=== PATIENT | male | born 1955 | race Caucasian/White ===

== ENCOUNTER 2022-02-05 15:15 | Emergency (ER) | payer OTHER ==
[2022-02-05 15:27] VITALS: RESP 18
[2022-02-05] MEDS ORDERED: DIPH,PERTUS(ACELL)TETVAC-LF 0.5 ML VIAL IM ONE (15:33)
[2022-02-05] MEDS ORDERED: LIDOCAINE 1%-EPI 1:100,000 20 ML VIAL SQ STA (15:34)
--- NOTE | 2022-02-05 16:31 | CT ---
EXAMINATION TYPE: CT brain wo con CT DLP: 1114.4 mGycm, Automated exposure control for dose reduction was used. DATE OF EXAM: 02/05/2022 4:23 PM COMPARISON: None. CLINICAL INDICATION:Male, 66 years old with history of head injury, fall, head injury TECHNIQUE: Brain: Axial CT images of the brain were obtained with coronal and sagittal reformats created and rev iewed. Contrast used: None. Oral contrast used: None. FINDINGS: Brain: Extra-axial spaces: No abnormal extra-axial fluid collections. Ventricular system: Dilatation in proportion to cerebral atrophy. Cerebral parenchyma: Cerebral atrophy. No acute intraparenchymal hemorrhage or mass effect. The cordova -white junction is well differentiated. Cerebellum: Unremarkable. Mass effect: No evidence of midline shift. Intracranial vasculature: unremarkable Soft tissues: Normal. Calvarium/osseous structures: No depressed skull fracture. Paranasal sinuses and mastoid air cells: Mild scattered paranasal sinus disease. Visualized orbits: Orbital contents are intact. IMPRESSION: No acute intracranial process.
--- NOTE | 2022-02-05 17:44 | ED ---
Fall HPI - General Chief Complaint: Fall Stated Complaint: Fell,Head injury Time Seen by Provider: 02/05/22 15:25 Source: EMS Mode of arrival: EMS - History of Present Illness Initial Comments: This 66-year-old male presents with a complaint of a fall with head injury. This occurred just shortly prior to arrival. He was at a camp when he was utilizing his walker. He apparently may have let go of his walker fell back and hit his head on the ground. He did not lose any consciousness. There is been no nausea or vomiting. He's been acting normal. There's been no neurologic complaints otherwise. He did obtain a small head laceration. There is mild to moderate bleeding. He does not take any blood thinners. They deny any other injuries. No other complaints or modifying factors. - Related Data Home Medications Medication Instructions Recorded Confirmed Cholecalciferol (Vitamin D3) 62.5 mcg PO DAILY@0800 02/05/22 02/05/22 [Vitamin D3 (2500 units)] Trihexyphenidyl HCl 8 mg PO TID@0800,1630,2300 02/05/22 02/05/22 tiZANidine HCL 8 mg PO TID@0800,1630,2300 02/05/22 02/05/22 Allergies Allergy/AdvReac Type Severity Reaction Status Date / Time No Known Allergies Allergy Verified 02/05/22 17:07 Review of Systems ROS Statement: Those systems with pertinent positive or pertinent negative responses have been documented in the HPI. ROS Other: All systems not noted in ROS Statement are negative. 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 VITAL SIGNS: Heart rate, blood pressure, respiratory rate reviewed as recorded in nurse's notes. EYES: Pupils are round and reactive. Extraocular movements are intact. No conjunctival / lid redness or swelling. ENT: There is a 0.5 cm puncture type laceration noted to the occiput. There is only minimal bleeding noted. There is no swelling identified. Airway is patent. Throat is clear. NECK: Nontender. No swelling or evidence of injury. No subcutaneous emphysema. Trachea is midline. No thyroid mass. HEART: Regular rate and rhythm. Good peripheral pulses. LUNGS/CHEST: Breath sounds clear and equal bilaterally. No rales, rhonchi, or wheezes. No ecchymosis, subcutaneous emphysema, or tenderness. ABDOMEN: Abdomen soft without tenderness. No palpable masses or organomegaly. No peritoneal signs. No abdominal wall swelling or ecchymosis. EXTREMITIES: No extremity tenderness. No thoracolumbar tenderness. NEUROLOGIC: Sensation is grossly intact. Cranial nerve exam reveals face is symmetrical, tongue is midline, speech is clear. SKIN: No abrasions or ecchymosis is noted. No induration or masses noted. PSYCHIATRIC: Alert and pleasant. Limitations: altered mental status, physical limitation Course Vital Signs 02/05/22 15:22 Temperature 98.1 F Pulse Rate 80 Respiratory 18 Rate Blood Pressure 150/101 O2 Sat by Pulse 94 L Oximetry Medical Decision Making - Medical Decision Making The patient was seen and examined. The computed tomography scan of brain was done and does not show any acute processes. The wound is anesthetized with approximately 1 mL of lidocaine with epinephrine. Excellent anesthesia was obtained. The wound was cleansed and closed with 1 staple. Tetanus is updated. It is felt as though he stable for discharge. Return parameters are discussed with patient, came nurse, and sister in detail. He is to have staple out in 10 days. Disposition Clinical Impression: Fall, Head injury, Scalp laceration Disposition: HOME SELF-CARE Condition: Good Instructions (If sedation given, give patient instructions): Fall Prevention for Older Adults (ED), Head Injury (ED), Staple Care (ED) Additional Instructions: Please have your fe out in 10 days. Is patient prescribed a controlled substance at d/c from ED?: No Referrals: None,Stated [Primary Care Provider] - 02/15/22 Time of Disposition: 17:43
[2022-02-05 17:50] VITALS: BP 124/84; PULSE 88; TEMP 97.6
== END 2022-02-05 18:05 | disposition home or self-care (01) ==
LOC: EC 15:15
DX: S01.01XA Laceration without foreign body of scalp, initial encounter (principal); Z23 Encounter for immunization; W01.198A Fall on same level from slipping, tripping and stumbling with subsequent striking against other object, initial encounter
CPT/HCPCS: 12011; 70450; 90471; 90715; 99284

== ENCOUNTER 2025-01-09 12:31 | Observation (INO) | payer MEDICARE, OTHER ==
--- NOTE | 2025-01-09 12:54 | ED ---
General Adult HPI - General Chief complaint: Syncope Stated complaint: Syncope Time Seen by Provider: 01/09/25 12:36 Source: patient, RN notes reviewed Mode of arrival: EMS Limitations: no limitations - History of Present Illness Initial comments: Patient is a 69-year-old male presenting to the emergency department with family and staff with concerns for syncopal episode. Patient did have a syncopal episode 3 days ago and went to a different emergency department and was given fluids. Patient again had a couple of near syncopal episodes followed by unresponsive episode. No shaking activity seen. No injury. Patient is somewhat a poor historian. 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 Patient normally lives at a full care facility. Patient is currently at a local camp. Patient is symptom-free and has no complaints. Patient denies chest pain. No pain at all. Family feels patient is acting normal. Patient family is unclear if patient normally has difficulty with extraocular eye movements. - Related Data Home Medications Medication Instructions Recorded Confirmed Cholecalciferol (Vitamin D3) 62.5 mcg PO DAILY@0800 02/05/22 02/05/22 [Vitamin D3 (2500 units)] Trihexyphenidyl HCl 8 mg PO TID@0800,1630,2300 02/05/22 02/05/22 tiZANidine HCL 8 mg PO TID@0800,1630,2300 02/05/22 02/05/22 Allergies Allergy/AdvReac Type Severity Reaction Status Date / Time No Known Allergies Allergy Verified 02/05/22 17:07 Review of Systems ROS Statement: Those systems with pertinent positive or pertinent negative responses have been documented in the HPI. ROS Other: All systems not noted in ROS Statement are negative. Constitutional: Denies: fever Eyes: Reports: as per HPI. 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 Absent: EOMI (Difficulty moving the right eye medial of midline) ENT exam: Present: normal oropharynx Respiratory exam: Present: normal lung sounds bilaterally Cardiovascular Exam: Present: regular rate, normal rhythm Expanded Peripheral pulses: 2+: Radial (R), Radial (L), Posterior Tibialis (R), Posterior Tibialis (L) GI/Abdominal exam: Present: soft. Absent: tenderness, pulsatile mass Extremities exam: Present: tenderness (Mild tenderness right shoulder which patient states is chronic), calf tenderness (Right sided) Neurological exam: Present: alert, CN II-XII intact (Except right eye) Expanded Neurological exam: Present: protecting the airway Patient oriented to: Present: person, place Cranial nerves: EOM's Intact: Abnormal Right (Difficulty moving the right eye medial of midline) Sensory exam: Upper Extremity Light Touch: Normal, Lower Extremity Light Touch: Normal Motor strength exam: RUE: 5, LUE: 5, RLE: 5, LLE: 5 Eye Response: (4) open spontaneously Motor Response: (6) obeys commands Verbal Response: (4) confused conversation (Reported as normal) Psychiatric exam: Present: normal affect, normal mood Skin exam: Present: normal color Course Vital Signs 01/09/25 01/09/25 01/09/25 12:34 15:07 16:05 Temperature 97.8 F Pulse Rate 63 76 79 Respiratory 18 18 18 Rate Blood Pressure 127/80 152/63 136/89 O2 Sat by Pulse 100 100 97 Oximetry 01/09/25 17:13 Temperature Pulse Rate 54 L Respiratory 18 Rate Blood Pressure 129/75 O2 Sat by Pulse 96 Oximetry EKG Findings - EKG Results: EKG: interpreted by ERMD, sinus rhythm, normal axis, normal QRS, normal ST/T EKG shows: bradycardia Medical Decision Making - Medical Decision Making Was pt. sent in by a medical professional or institution (, PA, DOCKETING SPECIALIST, urgent care, hospital, or custodial...) When possible be specific @ -Patient was sent and from camp Did you speak to anyone other than the patient for history (EMS, parent, family, police, friend...)? What history was obtained from this source @ -Sister and Doctor help provide history as patient is a poor historian Did you review nursing and triage notes (agree or disagree)? Why? @ -I reviewed and agree with nursing and triage notes Were old charts reviewed (outside hosp., previous admission, EMS record, old EKG, old radiological studies, urgent care reports/EKG's, custodial records)? Report findings @ -No old charts were reviewed Differential Diagnosis (chest pain, altered mental status, abdominal pain women, abdominal pain men, vaginal bleeding, weakness, fever, dyspnea, syncope, headache, dizziness, GI bleed, back pain, seizure, CVA, palpatations, mental health, musculoskeletal)? @ -Differential Syncope: Valvular disease, hypertrophic cardiomyopathy, pulmonary embolism, tamponade, t achycardia, bradycardia, SC, hypovolemia, hemorrhage, dissection, anemia, intracranial hemorrhage, seizure, hypoglycemia, carbon monoxide poisoning, this is not meant to be an all-inclusive list. EKG interpreted by me (3pts min.). @ -As above X-rays interpreted by me (1pt min.). @ - CT interpreted by me (1pt min.). @ -CT brain shows some hydrocephalus. CT chest without pulmonary embolism. Th ere is some increased groundglass appearance. U/S interpreted by me (1pt. min.). @ -Ultrasound without evidence of DVT What testing was considered but not performed or refused? (CT, X-rays, U/S, labs )? Why? @ -None What meds were considered but not given or refused? Why? @ -None Did you discuss the management of the patient with other professionals (professionals i.e. , PA, DOCKETING SPECIALIST, lab, RT, psych nurse, social science research assistant, volunteer patient representative, teacher, chemistry technical officer, employment evaluator/case manager)? Give summary @ -Case discussed with Dr. Curry who will admit covering hospital call Was smoking cessation discussed for >3mins.? @ -No Was critical care preformed (if so, how long)? @ -No Were there social determinants of health that impacted care today? How? (Homelessness, low income, unemployed, alcoholism, drug addiction, transportation, low edu. Level, literacy, decrease access to med. care, half-way, rehab)? @ -No Was there de-escalation of care discussed even if they declined (Discuss DNR or withdrawal of care, Hospice)? DNR status @ -No What co-morbidities impacted this encounter? (DM, HTN, Smoking, COPD, CAD, Cancer, CVA, ARF, Chemo, Hep., AIDS, mental health diagnosis, sleep apnea, morbid obesity)? @ -None Was patient admitted / discharged? Hospital course, mention meds given and route, prescriptions, significant lab abnormalities, going to OR and other pertinent info. @ -Patient presents with syncopal episode. Patient also had a syncopal episode a couple of days ago. There is concern this could be related to medications by family and camp doctor. Patient will be admitted with neuro consult. Patient and family updated. Admission orders written. Undiagnosed new problem with uncertain prognosis? @ -No Drug Therapy requiring intensive monitoring for toxicity (Heparin, Nitro, Insulin, Cardizem)? @ -No Were any procedures done? @ -No Diagnosis/symptom? @ -Syncope Acute, or Chronic, or Acute on Chronic? @ -Acute Uncomplicated (without systemic symptoms) or Complicated (systemic symptoms)? @ -Default Side effects of treatment? @ -No Exacerbation, Progression, or Severe Exacerbation? @ -No Poses a threat to life or bodily function? How? (Chest pain, USA, SC, pneumonia, PE, COPD, DKA, ARF, appy, cholecystitis, CVA, Diverticulitis, Homicidal, Suicidal, threat to staff... and all critical care pts) @ -No - Lab Data Result diagrams: 01/09/25 12:53 01/09/25 12:53 Lab Results 01/09/25 01/09/25 01/09/25 Range/Units 12:53 12:53 12:53 WBC 8.82 (4.50-10.00) 10*3/uL RBC 3.81 L (4.40-5.60) 10*6/uL Hgb 12.3 L (13.0-17.0) g/dL Hct 37.1 L (39.6-50.0) % MCV 97.4 H (80.0-97.0) fL MCH 32.3 H (27.0-32.0) pg MCHC 33.2 (32.0-37.0) g/dL Plt Count 349 (140-440) 10*3/uL MPV 9.2 L (9.5-12.2) fL Immature Gran % (Auto) 0.1 % Neutrophils % 63.1 % Lymphocytes % 20.6 % Monocytes % 11.2 % Eosinophils % 4.4 % Basophils % 0.6 % Immature Gran # 0.01 (0.00-0.04) 10*3/uL Neutrophils # 5.56 (1.80-7.70) 10*3/uL Lymphocytes # 1.82 (0.90-5.00) 10*3/uL Monocytes # 0.99 (0.20-1.00) 10*3/uL Eosinophils # 0.39 H (0.04-0.35) 10*3/uL Basophils # 0.05 (0.00-0.10) 10*3/uL PT 10.9 (10.0-12.5) sec INR 1.0 (<1.2) APTT 23.3 (22.0-30.0) sec D-Dimer 1.49 H (<0.60) mg/L FEU Sodium 143 (137-145) mmol/L Potassium 4.4 (3.5-5.1) mmol/L Chloride 103 (98-107) mmol/L Carbon Dioxide 31 H (22-30) mmol/L Anion Gap 9 mmol/L BUN 22 H (9-20) mg/dL Creatinine 0.64 L (0.66-1.25) mg/dL Est GFR (CKD-EPI)AfAm >90 (>60 ml/min/1.73 sqM) Est GFR (CKD-EPI)NonAf >90 (>60 ml/min/1.73 sqM) Glucose 80 (74-99) mg/dL Calcium 9.2 (8.4-10.2) mg/dL Magnesium 1.7 (1.6-2.3) mg/dL Total Bilirubin 0.2 (0.2-1.3) mg/dL AST 21 (17-59) U/L ALT 11 (4-49) U/L Alkaline Phosphatase 64 (38-126) U/L Troponin I (0.000-0.034) ng/mL Total Protein 7.2 (6.3-8.2) g/dL Albumin 4.1 (3.5-5.0) g/dL Urine Color Urine Appearance (Clear) Urine pH (5.0-8.0) Ur Specific [place] (1.001-1.035) Urine Protein (Negative) Urine Glucose (UA) (Negative) Urine Ketones (Negative) Urine Blood (Negative) Urine Nitrite (Negative) Urine Bilirubin (Negative) Urine Urobilinogen (<2.0) mg/dL Ur Leukocyte Esterase (Negative) 01/09/25 01/09/25 Range/Units 12:53 15:50 WBC (4.50-10.00) 10*3/uL RBC (4.40-5.60) 10*6/uL Hgb (13.0-17.0) g/dL Hct (39.6-50.0) % MCV (80.0-97.0) fL MCH (27.0-32.0) pg MCHC (32.0-37.0) g/dL Plt Count (140-440) 10*3/uL MPV (9.5-12.2) fL Immature Gran % (Auto) % Neutrophils % % Lymphocytes % % Monocytes % % Eosinophils % % Basophils % % Immature Gran # (0.00-0.04) 10*3/uL Neutrophils # (1.80-7.70) 10*3/uL Lymphocytes # (0.90-5.00) 10*3/uL Monocytes # (0.20-1.00) 10*3/uL Eosinophils # (0.04-0.35) 10*3/uL Basophils # (0.00-0.10) 10*3/uL PT (10.0-12.5) sec INR (<1.2) APTT (22.0-30.0) sec D-Dimer (<0.60) mg/L FEU Sodium (137-145) mmol/L Potassium (3.5-5.1) mmol/L Chloride (98-107) mmol/L Carbon Dioxide (22-30) mmol/L Anion Gap mmol/L BUN (9-20) mg/dL Creatinine (0.66-1.25) mg/dL Est GFR (CKD-EPI)AfAm (>60 ml/min/1.73 sqM) Est GFR (CKD-EPI)NonAf (>60 ml/min/1.73 sqM) Glucose (74-99) mg/dL Calcium (8.4-10.2) mg/dL Magnesium (1.6-2.3) mg/dL Total Bilirubin (0.2-1.3) mg/dL AST (17-59) U/L ALT (4-49) U/L Alkaline Phosphatase (38-126) U/L Troponin I <0.012 (0.000-0.034) ng/mL Total Protein (6.3-8.2) g/dL Albumin (3.5-5.0) g/dL Urine Color Colorless Urine Appearance Clear (Clear) Urine pH 6.5 (5.0-8.0) Ur Specific [place] 1.010 (1.001-1.035) Urine Protein Negative (Negative) Urine Glucose (UA) Negative (Negative) Urine Ketones Negative (Negative) Urine Blood Negative (Negative) Urine Nitrite Negative (Negative) Urine Bilirubin Negative (Negative) Urine Urobilinogen <2.0 (<2.0) mg/dL Ur Leukocyte Esterase Negative (Negative) Disposition Clinical Impression: Syncope Disposition: ADMITTED IP TO THIS HOSP Is patient prescribed a controlled substance at d/c from ED?: No Referrals: Eric Laws DO [Primary Care Provider] - 1-2 days Time of Disposition: 17:42
[2025-01-09 13:01] LABS: Basophils # (A) 0.05 10*3/uL (0.00-0.10); Basophils % (A) 0.6 %; Eosinophils # (A) 0.39 10*3/uL (0.04-0.35); Eosinophils % (A) 4.4 %; HCT 37.1 % (39.6-50.0); HGB 12.3 g/dL (13.0-17.0); Lymphocytes # (A) 1.82 10*3/uL (0.90-5.00); Lymphocytes % (A) 20.6 %; MCH 32.3 pg (27.0-32.0); MCHC 33.2 g/dL (32.0-37.0); MCV 97.4 fL (80.0-97.0); Monocytes # (A) 0.99 10*3/uL (0.20-1.00); Monocytes % (A) 11.2 %; Neutrophils # (A) 5.56 10*3/uL (1.80-7.70); Neutrophils % (A) 63.1 %; Platelet Count 349 10*3/uL (140-440); RBC 3.81 10*6/uL (4.40-5.60); RDW 12.6 % (11.5-14.5); WBC 8.82 10*3/uL (4.50-10.00)
[2025-01-09 13:19] LABS: ALT 11 U/L (4-49); AST 21 U/L (17-59); African American GFR (CKD) >90 (>60 ml/min/1.73 sqM); Albumin 4.1 g/dL (3.5-5.0); Alkaline Phosphatase 64 U/L (38-126); Anion Gap 9 mmol/L; Blood Urea Nitrogen 22 mg/dL (9-20); Calcium 9.2 mg/dL (8.4-10.2); Carbon Dioxide 31 mmol/L (22-30); Chloride 103 mmol/L (98-107); Glucose 80 mg/dL (74-99); Magnesium 1.7 mg/dL (1.6-2.3); Non-African American GFR(CKD) >90 (>60 ml/min/1.73 sqM); Potassium 4.4 mmol/L (3.5-5.1); Sodium 143 mmol/L (137-145); Total Protein 7.2 g/dL (6.3-8.2)
[2025-01-09 13:24] LABS: INR 1.0 (<1.2); Partial Thromboplastin Time 23.3 sec (22.0-30.0); Prothrombin Time 10.9 sec (10.0-12.5)
[2025-01-09] MEDS: SODIUM CHLORIDE 0.9% 1,000 ML IV STA (14:04)
--- NOTE | 2025-01-09 14:15 | US ---
EXAMINATION TYPE: US venous doppler duplex LE RT DATE OF EXAM: 01/09/2025 2:06 PM COMPARISON: NONE CLINICAL INDICATION: Male, 69 years old with history of pain; Right leg pain, Pain TECHNIQUE: The lower extremity deep venous system is examined utilizing real time linear array sonog joey with graded compression, color doppler sonography, and spectral doppler. SIDE PERFORMED: Right FINDINGS: VESSELS IMAGED: Common Femoral Vein Deep Femoral Vein Greater Saphenous Vein * Femoral Vein Popliteal Vein Small Saphenous Vein * Proximal Calf Veins (* superficial vessels) Right Leg: Negative for DVT, Color Doppler imaging shows patency of the vessels. Spectral waveforms are within normal limits. Pulsatile venous waveforms IMPRESSION: No ultrasound evidence for deep venous thrombosis. [facility], , 01/09/2025 2:13 PM
[2025-01-09 16:04] LABS: Bilirubin,Urine Negative (Negative); Blood,Urine Negative (Negative); Color,Urine Colorless; Glucose,Urine (UA) Negative (Negative); Ketones,Urine Negative (Negative); Leukocyte Esterase,Urine Negative (Negative); Nitrite,Urine Negative (Negative); PH, Urine 6.5 (5.0-8.0); Protein,Urine Negative (Negative); Specific Gravity,Urine 1.010 (1.001-1.035); Urobilinogen,Urine <2.0 mg/dL (<2.0)
--- NOTE | 2025-01-09 16:53 | CT ---
EXAMINATION TYPE: CT brain wo con CT DLP: 1162.2 mGycm, Automated exposure control for dose reduction was used. DATE OF EXAM: 01/09/2025 4:46 PM COMPARISON: CT brain 02/06/2020 CLINICAL INDICATION:Male, 69 years old with history of syncope, ams TECHNIQUE: Brain: Multiple axial CT images of the brain were obtained without IV contrast. . Coronal and sagitta l reformats reviewed. FINDINGS: Brain: Extra-axial spaces: No abnormal extra-axial fluid collections. Ventricular system: Mild hydrocephalus redemonstrated. Cerebral parenchyma: Minimal cerebral atrophy. No acute intraparenchymal hemorrhage or mass effect. The cordova-white junction is well differentiated. Cerebellum: Unremarkable. Mass effect: No evidence of midline shift. Intracranial vasculature: Atherosclerotic calcifications of the intracranial vessels. Soft tissues: Normal. Calvarium/osseous structures: No depressed skull fracture. Paranasal sinuses and mastoid air cells: Clear Visualized orbits: Orbital contents are intact. IMPRESSION: 1. No acute intracranial hemorrhage. 2. Mild hydrocephalus redemonstrated. This seems greater than level of cerebral atrophy. Correlate c linically for possible normal pressure hydrocephalus. [facility], , 01/09/2025 4:51 PM
--- NOTE | 2025-01-09 17:11 | CT ---
EXAMINATION TYPE: CT angio chest CT DLP: 262.4 mGycm, Automated exposure control for dose reduction was used. DATE OF EXAM: 01/09/2025 4:46 PM COMPARISON: None CLINICAL INDICATION:Male, 69 years old with history of syncope; elevated d-dimer TECHNIQUE/CONTRAST: CTA scan of the thorax is performed with IV Contrast, patient injected with 100ml mL of Isovue 370, p ulmonary embolism protocol. MIP images are created and reviewed. FINDINGS: Pulmonary Artery: There is no evidence for a filling defect within the pulmonary vasculature to sugge st acute pulmonary embolism. The pulmonary artery is of normal size. Lungs/Pleura: No pleural effusion or pneumothorax. Scattered patchy groundglass opacities throughout the lungs. No suspicious pulmonary nodule or mass. Elevation of the right hemidiaphragm. Airway: Large airways are patent. Heart: Cardiomegaly is demonstrated.No pericardial effusion. No significant coronary artery calcifica tions. Vasculature: No evidence of aortic aneurysm. Mediastinum: No evidence of adenopathy. Musculoskeletal: Healing right anterolateral fourth through sixth nondisplaced rib fractures with tita hernandez formation. No segmental fractures. Remote healed left-sided rib fractures. Soft Tissues: Prominent bilateral gynecomastia. Lower neck: No significant findings. Upper Abdomen: No significant findings. IMPRESSION: 1. No evidence of pulmonary embolism. 2. Scattered groundglass pulmonary opacities suggesting atypical pulmonary infection.. 3. Healing right anterolateral fourth through sixth nondisplaced rib fractures with callus formation. [facility], , 01/09/2025 5:09 PM
[2025-01-09] MEDS ORDERED: NALOXONE 0.4 MG/ML 1 ML VIAL IV PRN (17:42)
--- NOTE | 2025-01-09 23:09 | P.HPIM ---
History of Present Illness H&P Date: 01/09/25 Chief Complaint: weakness The patient is a 69-year-old male with a history of neuromuscular dystonia who was hospitalized in mid December for urinary tract infection. At that time the patient's Artane was discontinued. The patient last Thursday had an episode of loss of consciousness. Family describes patient becoming weak and confused. The patient was at a day camp for persons with disabilities. He has been at the camp since last Thursday the patient had 2 episodes similar to last Thursday. The episodes involve him becoming weak losing control of his muscles and confusion. The patient had a similar episode 2 days he was brought to emergency room for evaluation prior to coming to the emergency room the family discussed with the patient's primary neurologist restarting his artery at that time was recommended that he started with half the dose 3 times a day. The patient was at his baseline at the time of my evaluation. Review of Systems Constitutional: Reports lethargy, Reports weakness Past Medical History Past Medical History: Neurologic Disorder Additional Past Medical History / Comment(s): distonia neuromuscular History of Any Multi-Drug Resistant Organisms: None Reported Past Surgical History: Appendectomy, Tonsillectomy Past Psychological History: No Psychological Hx Reported Smoking Status: Never smoker Past Alcohol Use History: None Reported Past Drug Use History: None Reported Medications and Allergies Home Medications Medication Instructions Recorded Confirmed Type tiZANidine HCL 8 mg PO Q8HR@0800,1400,219902/05/22 01/09/25 History Acetaminophen Tab [Tylenol] 650 mg PO Q8HR@0800,1400,219901/09/25 01/09/25 History Cholecalciferol (Vitamin D3) 125 mcg PO DAILY@79901/09/25 01/09/25 History [Vitamin D3 (125 MCG = 5,000 IU)] Escitalopram [Lexapro] 10 mg PO DAILY@79901/09/25 01/09/25 History Fludrocortisone [Florinef] 0.1 mg PO DAILY@79901/09/25 01/09/25 History Midodrine HCl 10 mg PO TID@0800,1400,199901/09/25 01/09/25 History Sennosides 17.2 mg PO HS@199901/09/25 01/09/25 History Tamsulosin HCl [Flomax] 0.4 mg PO HS@199901/09/25 01/09/25 History Allergies Allergy/AdvReac Type Severity Reaction Status Date / Time No Known Allergies Allergy Verified 01/09/25 18:41 Physical Exam Vitals: Vital Signs Temp Pulse Resp BP Pulse Ox 01/09/25 18:01 55 L 18 163/91 97 01/09/25 17:13 54 L 18 129/75 96 01/09/25 16:05 79 18 136/89 97 01/09/25 15:07 76 18 152/63 100 01/09/25 12:34 97.8 F 63 18 127/80 100 Intake and Output 01/09/25 01/09/25 01/09/25 06:59 14:59 22:59 Output Total 700 Balance -700 Output: Urine 700 Straight 700 Other: Weight 54.431 kg - Constitutional General appearance: thin - EENT Eyes: PERRLA - Respiratory Respiratory: bilateral: CTA - Cardiovascular Rhythm: regular - Gastrointestinal General gastrointestinal: normal bowel sounds - Musculoskeletal Musculoskeletal: generalized weakness (limited at baseline) Results CBC & Chem 7: 01/09/25 12:53 01/09/25 12:53 Labs: Abnormal Lab Results - Last 24 Hours (Table) 01/09/25 01/09/25 01/09/25 Range/Units 12:53 12:53 12:53 RBC 3.81 L (4.40-5.60) 10*6/uL Hgb 12.3 L (13.0-17.0) g/dL Hct 37.1 L (39.6-50.0) % MCV 97.4 H (80.0-97.0) fL MCH 32.3 H (27.0-32.0) pg MPV 9.2 L (9.5-12.2) fL Eosinophils # 0.39 H (0.04-0.35) 10*3/uL D-Dimer 1.49 H (<0.60) mg/L FEU Carbon Dioxide 31 H (22-30) mmol/L BUN 22 H (9-20) mg/dL Creatinine 0.64 L (0.66-1.25) mg/dL CT scan - chest: report reviewed Assessment and Plan (1) Weakness Current Visit: Yes Status: Acute Onset Date: ~01/09/25 Code(s): R53.1 - W EAKNESS SNOMED Code(s): 91926518 (2) Syncope Narrative/Plan: Monitor on telemetry, unclear if true loss of consciousness, could be weakness secondary to medication Current Visit: Yes Status: Acute Code(s): R55 - SYNCOPE AND COLLAPSE SN OMED Code(s): 660258556 (3) Dysphagia Narrative/Plan: At baseline continue pured diet diet with thin liquids Current Visit: Yes Status: Acute Code(s): R13.10 - DYSPHAGIA, UNSPECIFIED SNOMED Code(s): 39743778 Plan: Restart Artane at lower dose, monitor patient's, resume other home medications
[2025-01-10 08:03] LABS: Basophils # (A) 0.07 10*3/uL (0.00-0.10); Basophils % (A) 0.7 %; Eosinophils # (A) 0.26 10*3/uL (0.04-0.35); Eosinophils % (A) 2.6 %; HCT 37.0 % (39.6-50.0); HGB 12.1 g/dL (13.0-17.0); Lymphocytes # (A) 1.53 10*3/uL (0.90-5.00); Lymphocytes % (A) 15.4 %; MCH 31.3 pg (27.0-32.0); MCHC 32.7 g/dL (32.0-37.0); MCV 95.9 fL (80.0-97.0); Monocytes # (A) 0.85 10*3/uL (0.20-1.00); Monocytes % (A) 8.6 %; Neutrophils # (A) 7.19 10*3/uL (1.80-7.70); Neutrophils % (A) 72.5 %; Platelet Count 345 10*3/uL (140-440); RBC 3.86 10*6/uL (4.40-5.60); RDW 12.5 % (11.5-14.5); WBC 9.92 10*3/uL (4.50-10.00)
[2025-01-10 08:17] LABS: ALT 11 U/L (4-49); AST 21 U/L (17-59); African American GFR (CKD) >90 (>60 ml/min/1.73 sqM); Albumin 3.8 g/dL (3.5-5.0); Albumin/Globulin Ratio 1.4; Alkaline Phosphatase 59 U/L (38-126); Anion Gap 9 mmol/L; Blood Urea Nitrogen 13 mg/dL (9-20); Calcium 9.1 mg/dL (8.4-10.2); Carbon Dioxide 27 mmol/L (22-30); Chloride 105 mmol/L (98-107); Globulin 2.8 g/dL; Glucose 89 mg/dL (74-99); Non-African American GFR(CKD) >90 (>60 ml/min/1.73 sqM); Potassium 4.0 mmol/L (3.5-5.1); Sodium 141 mmol/L (137-145); Total Protein 6.6 g/dL (6.3-8.2)
--- NOTE | 2025-01-10 13:39 | P.CNNES ---
<Jared Falcon - Last Filed: 01/10/25 13:17> History of Present Illness Consult date: 01/10/25 Requesting physician: Dennis Richardson Reason for Consult: Syncope Chief complaint: Syncopal episode History of Present Illness: Patient is a 69 year old male with past medical history of neuromuscular dystonia presented to the ED with syncopal episode. Patient seen today under neurological consultation for syncope. Patient had a syncopal episode 3 days ago and went to a different emergency department where he was given fluids. He then had a couple of near syncopal episodes followed by an unresponsive episode when he was at day camp for persons with disabilities. He lives at a full care facility. Patient's Artane was r ecently stopped and he was supposed to meet with his primary neurologist for recent this medication and he was recommended to start with half the dose. His blood pressure today is 160/[address] shows no acute intracranial hemorrhage, mild hydrocephalus redemonstrated which seems greater than the level of cerebral atrophy Past Medical History Past Medical History: Neurologic Disorder Additional Past Medical History / Comment(s): distonia neuromuscular History of Any Multi-Drug Resistant Organisms: None Reported Past Surgical History: Appendectomy, Tonsillectomy Past Psychological History: No Psychological Hx Reported Smoking Status: Never smoker Past Alcohol Use History: None Reported Past Drug Use History: None Reported Medications and Allergies Home Medications Medication Instructions Recorded Confirmed Type tiZANidine HCL 8 mg PO Q8HR@0800,1400,0 02/05/22 01/09/25 History Acetaminophen Tab [Tylenol] 650 mg PO Q8HR@0800,1400,219901/09/25 01/09/25 History Cholecalciferol (Vitamin D3) 125 mcg PO DAILY@79901/09/25 01/09/25 History [Vitamin D3 (125 MCG = 5,000 IU)] Escitalopram [Lexapro] 10 mg PO DAILY@79901/09/25 01/09/25 History Fludrocortisone [Florinef] 0.1 mg PO DAILY@79901/09/25 01/09/25 History Midodrine HCl 10 mg PO TID@0800,1400,199901/09/25 01/09/25 History Sennosides 17.2 mg PO HS@199901/09/25 01/09/25 History Tamsulosin HCl [Flomax] 0.4 mg PO HS@199901/09/25 01/09/25 History Allergies Allergy/AdvReac Type Severity Reaction Status Date / Time No Known Allergies Allergy Verified 01/09/25 18:41 Physical Examination - Vital Signs Vital Signs: Vital Signs Temp Pulse Pulse Resp BP BP Pulse Ox 01/10/25 12:00 97.5 F L 97 20 160/77 95 01/10/25 11:19 98.6 F 96 20 133/86 97 01/10/25 09:27 84 20 149/90 94 L 01/10/25 06:00 87 16 148/96 98 01/10/25 02:09 79 18 119/86 95 01/10/25 00:02 72 18 125/83 98 01/09/25 18:01 55 L 18 163/91 97 01/09/25 17:13 54 L 18 129/75 96 01/09/25 16:05 79 18 136/89 97 01/09/25 15:07 76 18 152/63 100 Intake and Output 01/09/25 01/10/25 01/10/25 22:59 06:59 14:59 Output Total 700 Balance -700 Output: Urine 700 Straight 700 General: nontoxic, no distress On general examination, there is no carotid bruit or murmur, S1-S2 audible. Chest is clear on consultation. Abdomen is soft nontender. No peripheral edema. Neuro: Awake, Alert, Oriented x3 Face is symmetric, facial sensation normal. On muscle strength testing, and the strength is 4/5 in all 4 extremities Deep tendon reflexes are symmetric 1 at the biceps, 0 brachioradialis, 1 at the knees and plantars downgoing bilaterally. Sensory to touch is equal Cerebellar function showed no ataxia for [id number] testing. Results - Laboratory Findings CBC and BMP: 01/10/25 05:45 01/10/25 05:45 Abnormal Lab Findings: Abnormal Labs 01/09/25 01/09/25 01/09/25 12:53 12:53 12:53 RBC 3.81 L Hgb 12.3 L Hct 37.1 L MCV 97.4 H MCH 32.3 H MPV 9.2 L Eosinophils # 0.39 H D-Dimer 1.49 H Carbon Dioxide 31 H BUN 22 H Creatinine 0.64 L 01/10/25 01/10/25 05:45 05:45 RBC 3.86 L Hgb 12.1 L Hct 37.0 L MCV MCH MPV Eosinophils # D-Dimer Carbon Dioxide BUN Creatinine 0.49 L Assessment and Plan Assessment: Syncopal episode Multiple presyncopal episodes History of neuromuscular dystonia Plan: Brain CT shows no acute intracranial hemorrhage, mild hydrocephalus redemonstrated with seems greater than the level of cerebral atrophy Obtain EEG Continue IV fluids Continue home medications fludrocortisone, midodrine, tizanidine Dictation was produced using [employer] dictation software. please excuse any grammatical, word or spelling errors. Jared Falcon MD PGY-2 IM <Newton Sheriff - Last Filed: 01/10/25 18:31> Physical Examination - Vital Signs Vital Signs: Vital Signs Temp Pulse Pulse Resp BP BP Pulse Ox 01/10/25 14:43 98.3 F 102 H 19 100/65 99 01/10/25 12:00 97.5 F L 97 20 160/77 95 01/10/25 11:19 98.6 F 96 20 133/86 97 01/10/25 09:27 84 20 149/90 94 L 01/10/25 06:00 87 16 148/96 98 01/10/25 02:09 79 18 119/86 95 01/10/25 00:02 72 18 125/83 98 Intake and Output 01/10/25 01/10/25 01/10/25 06:59 14:59 22:59 Output Total 450 Balance -450 Output: Urine 450 Other: Weight 54.431 kg Results - Laboratory Findings CBC and BMP: 01/10/25 05:45 01/10/25 05:45 Abnormal Lab Findings: Abnormal Labs 01/09/25 01/09/25 01/09/25 12:53 12:53 12:53 RBC 3.81 L Hgb 12.3 L Hct 37.1 L MCV 97.4 H MCH 32.3 H MPV 9.2 L Eosinophils # 0.39 H D-Dimer 1.49 H Carbon Dioxide 31 H BUN 22 H Creatinine 0.64 L 01/10/25 01/10/25 05:45 05:45 RBC 3.86 L Hgb 12.1 L Hct 37.0 L MCV MCH MPV Eosinophils # D-Dimer Carbon Dioxide BUN Creatinine 0.49 L Assessment and Plan Assessment: syncope: possibly due to medication induced (high dose of Tizanidine) Plan: We will lower her Tiznidine dose as per her outpatient recommendation per family members to 4mg tid rather than 8mg td. Also will resume her home Trihexyphenidly 2mg tid. Recommend the patient to follow-up with his outpatient neurologist within 2-3 weeks. If the patient is doing well within 24 hours, then is clear from neurological perspective I personally examined the patient with the resident and obtained history. I agree with the resident's assessment and plan. Newton Sheriff M.D. Time with Patient: Greater than 30
[2025-01-10] MEDS: MIDODRINE 5 MG TAB PO SCH (17:10)
[2025-01-10] MEDS: FLUDROCORTISONE 0.1 MG TAB PO SCH (17:10)
[2025-01-10] MEDS: TRIHEXYPHENIDYL 2 MG TAB PO SCH (17:40)
--- NOTE | 2025-01-10 17:45 | P.PN ---
Subjective Progress Note Date: 01/10/25 Hospital course: Patient is a very pleasant 69-year-old male with a past medical history of BPH and neuromuscular dystonia with chronic hypotension on midodrine and Florinef. He presented to our facility on 01/09/2025 secondary to recurrent syncopal episodes, weakness, and confusion. Patient recently had medication changes made and Artane was discontinued. Since discontinuation of this medication patient has had recurrent episodes of loss of consciousness/syncope. Patient was attending a day For persons with disabilities and experienced 2 episodes of loss of consciousness and was sent to our facility for evaluation. On arrival to our facility, patient underwent evaluation in the emergency department. Vital signs upon arrival show blood pressure 127/80, heart rate 63, respiratory rate 18, t emp 97.8 F, and SpO2 100% on room air. EKG completed showing sinus bradycardia at 58 bpm with no noted T wave or ST abnormality showing no signs of acute ischemia upon personal review and interpretation. Right lower extremity Doppler completed negative for DVT. CT brain completed negative for acute intercranial hemorrhage showing redemonstration of mild hydrocephalus reported appearing greater than level of cerebral atrophy concerning for possible normal pressure hydrocephalus. CTA chest completed negative for pulmonary emboli showing scattered groundglass pulmonary opacities in healing right anterolateral 4th through 6th nondisplaced rib fractures with callus formation. Labs completed and reviewed. CBC showing stable macrocytic anemia with hemoglobin of 12.3. Coagulation profile showing elevated D-dimer of 1.49. BMP showing hypercarbia with bicarb of 31 and prerenal azotemia with BUN of 22 otherwise normal findings. Blood glucose 80. Magnesium was slightly low at 1.7. Liver profile unremarkable. Troponin was negative at less than 0.012. Urinalysis negative for infection. Patient admitted under services with consultation to neurology. Physical exam: Patient seen and fully evaluated at bedside this morning. Patient mildly frustrated as he spilled juice on himself this morning when attempting to feed himself breakfast. Patient assisted with weaning up with damp cloth. Patient otherwise denies any complaints at this time. Vital signs reviewed and stable. General: Nontoxic, no distress and appears stated age. Chronically ill- appearing Derm: Skin warm and dry, normal coloration for ethnicity. Head: Atraumatic, normocephalic and symmetric. Eyes: no lid lag, and anicteric sclera Mouth: no lip lesions, mucus membranes moist Cardiovascular: regular rate and rhythm with normal S1S2, no murmur, positive posterior tibial pulses bilaterally, and cap refill < 2 seconds. Lungs: Respirations even, regular, and unlabored on room air. Lungs CTA bilaterally, no rhonchi, no rales, no wheezing, and no accessory muscle usage. Abdominal: soft, nontender to palpation, no guarding, no appreciable organomegaly Ext: No gross muscle atrophy, no edema, no contractures. Movement and sensation intact. Neuro/psych: Patient alert to person, place, and situation. Patient noted tremors in bilateral upper extremities. Psych: Alert and oriented to person, place, and situation. Appropriate and pleasant affect. Assessment and Plan of Care: Recurrent syncopal episodes, rule out seizure activity versus other causes such as autonomic instability resulting from abrupt discontinuation of Artane Metabolic encephalopathy, improved likely secondary to above Neuromuscular dystonia Neurology consulted, discussed plan of care with neurologist Dr. Richey patient to be placed back on Artane 2 mg 3 times daily EEG to be completed Continue neurochecks Fall precautions Orthostatic vitals Continue Florinef 0.1 mg daily and midodrine 10 mg 3 times daily with p arameters placed to hold for systolic pressure greater than 120 Continue Zanaflex 4 mg every 8 hours Elevated D-dimer, CTA negative for PE. Scattered groundglass pulmonary opacities Healing right anterolateral 4th through 6th nondisplaced rib fractures with callus formation - Patient denies respiratory complaints including shortness of breath or cough. WBC count normal findings at 9.92 and patient afebrile. - Encourage use of incentive spirometry 10-15 times hourly while awake. BPH Continue Flomax 0.4 mg nightly. Monitor for postvoid residual/retention. Data and imaging reviewed: Vital signs reviewed. Blood pressure 149/90, heart rate 84, respiratory rate 20, and SpO2 of 94% on room air. Morning labs reviewed. CBC showing stable normocytic anemia with hemoglobin of 12.1 otherwise normal findings. BMP unremarkable. Blood glucose 89. Liver profile normal findings. Calcium 9.1. Urinalysis negative for blood or infection. CODE STATUS: Full code DVT prophylaxis: Lovenox Discussed with: Patient, RN, and neurologist Anticipated discharge date: Pending clinical course, likely tomorrow Anticipated discharge place: Return home with home care Patient was seen independently by Nurse Pracitioner. This document was prepared using [employer] dictation software. Please allow for errors in engineering test mechanic, while rare they do occur. Frank Russell NP rendered care for this patient independently, reviewed the findings and plan as documented in the note above and agree with plan. I did not physically speak with or examine the patient on this date. Objective - Vital Signs Vital signs: Vital Signs Temp 97.8 F 01/09/25 12:34 Pulse 87 01/10/25 06:00 Resp 16 01/10/25 06:00 BP 148/96 01/10/25 06:00 Pulse Ox 98 01/10/25 06:00 FiO2 Intake & Output 01/09/25 01/10/25 01/10/25 18:59 06:59 18:59 Output Total 700 Balance -700 Weight 54.431 kg Output: Urine 700 Straight 700 - Labs CBC & Chem 7: 01/10/25 05:45 01/10/25 05:45 Labs: Abnormal Lab Results - Last 24 Hours (Table) 01/09/25 01/09/25 01/09/25 Range/Units 12:53 12:53 12:53 RBC 3.81 L (4.40-5.60) 10*6/uL Hgb 12.3 L (13.0-17.0) g/dL Hct 37.1 L (39.6-50.0) % MCV 97.4 H (80.0-97.0) fL MCH 32.3 H (27.0-32.0) pg MPV 9.2 L (9.5-12.2) fL Eosinophils # 0.39 H (0.04-0.35) 10*3/uL D-Dimer 1.49 H (<0.60) mg/L FEU Carbon Dioxide 31 H (22-30) mmol/L BUN 22 H (9-20) mg/dL Creatinine 0.64 L (0.66-1.25) mg/dL 01/10/25 01/10/25 Range/Units 05:45 05:45 RBC 3.86 L (4.40-5.60) 10*6/uL Hgb 12.1 L (13.0-17.0) g/dL Hct 37.0 L (39.6-50.0) % MCV (80.0-97.0) fL MCH (27.0-32.0) pg MPV (9.5-12.2) fL Eosinophils # (0.04-0.35) 10*3/uL D-Dimer (<0.60) mg/L FEU Carbon Dioxide (22-30) mmol/L BUN (9-20) mg/dL Creatinine 0.49 L (0.66-1.25) mg/dL
[2025-01-10] MEDS: TAMSULOSIN 0.4 MG CAP.ER.24H PO SCH (20:56)
[2025-01-10] MEDS: SENNOSIDES 8.6 MG TAB PO SCH (20:56)
--- NOTE | 2025-01-10 22:30 | EEG ---
ELECTROENCEPHALOGRAM REPORT CLINICAL HISTORY: This is a 69-year-old gentleman with syncopal spell. The video EEG is obtained to evaluate for seizure epileptiform activity. RELEVANT MEDICATION: 1. Tizanidine. 2. Trihexyphenidyl. EEG TYPE: This is a routine 21 channel EEG with video using the 10/20 electrode placement system. DESCRIPTION: Wakefulness is only obtained. During awake state, the posterior-dominant rhythm consists of [id number] voltage of 8.5 to 9.5 hertz activity that is well modulated and well sustained. There is no physiological stage 2 sleep architecture. There is no focal slowing. Interictal and ictal, none. ACTIVATION PROCEDURE: Photic stimulation and hyperventilation are not performed. CLINICAL INTERPRETATION: This is a normal routine EEG during awake state. There is no focal slowing, epileptiform discharge, or seizure on the EEG. A normal routine EEG does not rule out underlying epilepsy. Clinical correlation is recommended. MMFAM / ANDREZ: [id number] /
[2025-01-11] MEDS: ESCITALOPRAM 10 MG TAB PO SCH (08:37)
[2025-01-11] MEDS: ENOXAPARIN 40 MG/0.4 ML SYRINGE SQ SCH (08:39)
[2025-01-11] MEDS ORDERED: ZINC OXIDE PASTE (Z-GUARD) 1 APPLIC TOPICAL PRN (11:55)
[2025-01-11 14:41] VITALS: BP 98/59; PULSE 110; RESP 18; TEMP 98.3
--- NOTE | 2025-01-11 18:24 | P.DS ---
Providers Date of admission: 01/09/25 17:44 Expected date of discharge: 01/11/25 Attending physician: Atif Olmos MD Consults: 01/09/25 17:42 Consult Physician Urgent Consulting Provider: Newton Sheriff Consult Reason/Comments: syncope Do you want consulting provider notified?: Yes Primary care physician: Eric Laws, DO Hospital Course: Discharge Diagnosis: Recurrent syncopal episodes, suspect secondary to autonomic instability resulting from abrupt discontinuation of Artane. CT brain was negative for acute intracranial process showing redemonstration of mild hydrocephalus. Patient was evaluated by neurologist and an EEG was completed. EEG showing normal routine EEG showing no focal slowing, epileptiform discharge, or seizure activity. Neurology recommending restarting patient on Artane 200 mg 3 times daily. Patient had no further episodes of syncope/loss of consciousness and is free from any complaints at this time. Patient cleared from neurology perspective for discharge recommending outpatient follow-up with his primary neurologist. Patient medically optimized for discharge at this time. Patient being discharged back to [place] [facility] facility and to follow-up outpatient with PCP in 1 to 2 days and with his primary neurologist in 1 to 2 weeks. Attempts made to contact patient's family/DPOA to further discuss discharge instructions, no answer at this time. RN states that she will continue to attempt contact prior to [facility]. Prescription sent for Artane 200 mg 3 times daily. Metabolic encephalopathy, improved likely secondary to above Neuromuscular dystonia Elevated D-dimer, CTA negative for PE. Scattered groundglass pulmonary opacities. Patient asymptomatic of any respiratory complaints including shortness of breath, cough or congestion, or chest pain/discomfort. WBC count remained normal and patient remained afebrile throughout hospitalization. Recommend continuation of incentive spirometry after discharge. Healing right anterolateral 4th through 6th nondisplaced rib fractures with callus formation BPH. Continue Flomax 0.4 mg nightly. Hospital Course: Patient is a very pleasant 69-year-old male with a past medical history of BPH and neuromuscular dystonia with chronic hypotension on midodrine and Florinef. He presented to our facility on 01/09/2025 secondary to recurrent syncopal episodes, weakness, and confusion. Patient recently had medication changes made and Artane was discontinued. Since discontinuation of this medication patient has had recurrent episodes of loss of consciousness/syncope. Patient was attending a [facility] and experienced 2 episodes of loss of consciousness and was sent to our facility for evaluation. On arrival to our facility, patient underwent evaluation in the emergency department. Vital signs upon arrival show blood pressure 127/80, heart rate 63, respiratory rate 18, temp 97.8 F, and SpO2 100% on room air. EKG completed showing sinus bradycardia at 58 bpm with no noted T wave or ST abnormality showing no signs of acute ischemia upon personal review and interpretation. Right lower extremity Doppler completed negative for DVT. CT brain completed negative for acute intercranial hemorrhage showing redemonstration of mild hydrocephalus reported appearing greater than level of cerebral atrophy concerning for possible normal pressure hydrocephalus. CTA chest completed negative for pulmonary emboli showing scattered groundglass pulmonary opacities in healing right anterolateral 4th through 6th nondisplaced rib fractures with callus formation. Labs completed and reviewed. CBC showing stable macrocytic anemia with hemoglobin of 12.3. Coagulation profile showing elevated D-dimer of 1.49. BMP showing hypercarbia with bicarb of 31 and prerenal azotemia with BUN of 22 otherwise normal findings. Blood glucose 80. Magnesium was slightly low at 1.7. Liver profile unremarkable. Troponin was negative at less than 0.012. Urinalysis negative for infection. Patient admitted under services with consultation to neurology. Physical exam: Vital signs reviewed and stable. General: Nontoxic, no distress and appears stated age. Chronically ill- appearing Derm: Skin warm and dry, normal coloration for ethnicity. Head: Atraumatic, normocephalic and symmetric. Eyes: no lid lag, and anicteric sclera Mouth: no lip lesions, mucus membranes moist Cardiovascular: regular rate and rhythm with normal S1S2, no murmur, positive posterior tibial pulses bilaterally, and cap refill < 2 seconds. Lungs: Respirations even, regular, and unlabored on room air. Lungs CTA bilaterally, no rhonchi, no rales, no wheezing, and no accessory muscle usage. Abdominal: soft, nontender to palpation, no guarding, no appreciable organomegaly Ext: No gross muscle atrophy, no edema, no contractures. Movement and sensation intact. Neuro/psych: Patient alert to person, place, and situation. Patient noted tremors in bilateral upper extremities. Psych: Alert and oriented to person, place, and situation. Appropriate and pleasant affect. A total of 34 minutes of time were spent preparing this complex discharge summary. Pt was discharged on 01/11/2025 at 11:23 AM. Patient was seen independently by Nurse Practitioner. This document was prepared using [employer] dictation software. Please allow for errors in chef de cuisine while rare they do occur. Frank Russell NP rendered care for this patient independently, reviewed the findings and plan as documented in the note above. I did not physically speak with or examine the patient on this date. Patient Condition at Discharge: Stable Plan - Discharge Summary New Discharge Prescriptions: New Trihexyphenidyl [Artane] 2 mg PO AC-TID 30 Days #90 tab Continue Acetaminophen Tab [Tylenol] 650 mg PO Q8HR@0800,1400,2200 Escitalopram [Lexapro] 10 mg PO DAILY@0800 Tamsulosin HCl [Flomax] 0.4 mg PO HS@1999 tiZANidine HCL 8 mg PO Q8HR@0800,1400,2200 Sennosides 17.2 mg PO HS@1999 Fludrocortisone [Florinef] 0.1 mg PO DAILY@0800 Cholecalciferol (Vitamin D3) [Vitamin D3 (125 MCG = 5,000 IU)] 125 mcg PO DAILY@0800 Midodrine HCl 10 mg PO TID@0800,1400,1999 #0 Discharge Medication List tiZANidine HCL 8 mg PO Q8HR@0800,1400,2200 02/05/22 [History] Acetaminophen Tab [Tylenol] 650 mg PO Q8HR@0800,1400,2200 01/09/25 [History] Cholecalciferol (Vitamin D3) [Vitamin D3 (125 MCG = 5,000 IU)] 125 mcg PO DAILY@0800 01/09/25 [History] Escitalopram [Lexapro] 10 mg PO DAILY@0800 01/09/25 [History] Fludrocortisone [Florinef] 0.1 mg PO DAILY@00 01/09/25 [History] Sennosides 17.2 mg PO HS@199901/09/25 [History] Tamsulosin HCl [Flomax] 0.4 mg PO HS@199901/09/25 [History] Midodrine HCl 10 mg PO TID@0800,1399,1999 #0 01/11/25 [Rx] Trihexyphenidyl [Artane] 2 mg PO AC-TID 30 Days #90 tab 01/11/25 [Rx] Follow up Appointment(s)/Referral(s): Eric Laws DO [Primary Care Provider] - 1-2 days Patient Instructions/Handouts: Syncope (DC) Activity/Diet/Wound Care/Special Instructions: Activity: As tolerated. Diet: Heart healthy and carb consistent diet. Avoid salts, or foods with hidden salts such as canned or boxed foods and frozen dinners. Extra salt makes your heart work harder and traps the fluid in your body for longer. Special Instructions: Take all of your medications as directed and remember to keep all of your doctor's appointments and follow-up as needed. Thank you for allowing us to participate in your care, it was truly a pleasure having you for our patient!!! Discharge Disposition: HOME WITH HOME HEALTH SERVICES
== END 2025-01-11 15:05 | disposition home health service (06) ==
LOC: EC 12:31 → 6NMEDSUR 17:44
PROVIDERS: ADMIT Internal Medicine; ATTEND Internal Medicine
DX: R55 Syncope and collapse (principal); R53.1 Weakness; G93.41 Metabolic encephalopathy; R13.10 Dysphagia, unspecified; G24.9 Dystonia, unspecified; D53.9 Nutritional anemia, unspecified; N40.0 Benign prostatic hyperplasia without lower urinary tract symptoms; S22.41XA Multiple fractures of ribs, right side, initial encounter for closed fracture; X58.XXXA Exposure to other specified factors, initial encounter; I95.89 Other hypotension; R79.89 Other specified abnormal findings of blood chemistry; Z79.899 Other long term (current) drug therapy; Z79.52 Long term (current) use of systemic steroids
CPT/HCPCS: 96372; 96360; 96361 ×2; 99285; 36415; 95816; 93005; 85379; 80053 ×2; 83735; 84484; 85025 ×2; 85610; 85730; 81003; 93971; 70450; 71275; G0378 ×3; J1650; Q9967